=== PATIENT | female | born 1980 | race Caucasian/White ===

== ENCOUNTER 2020-11-18 20:52 | Emergency (ER) | payer OTHER, SELFPAY ==
[2020-11-18 21:00] VITALS: BP 139/91; PULSE 142; RESP 17; TEMP 36.6; O2SAT 100; BMI 29.0
[2020-11-18] MEDS: LIDO 1%/SOD BICARB 8.4% (10ML) 10 ML SYRINGE INJ (21:03)
--- NOTE | 2020-11-18 21:27 | ED.WOUNDLAC ---
HPI - Wound/Laceration General Chief Complaint: Wound/Laceration Stated Complaint: FALL LACERATION OF THE FACE Time Seen by Provider: 11/18/20 20:59 Source: patient Mode of arrival: Ambulatory Limitations: no limitations History of Present Illness HPI narrative: Patient is a 40-year-old female here for evaluation of a laceration to the left side of her face. She stated that she fell in the bathroom and did hit her face on the side of the tub. There was no loss of consciousness. She reports no other injury from the event. Related Data Previous Rx's Medication Instructions Recorded [Levothyroxine/Liothy] PO #90 cap 08/22/17 acyclovir 400 mg tablet 400 mg PO BID #14 tab 12/02/17 Allergies Allergy/AdvReac Type Severity Reaction Status Date / Time No Known Drug Allergies Allergy Verified 11/18/20 21:04 Review of Systems Constitutional Constitutional: Reports system reviewed and no additional complaints, except as documented ENT Ears, Nose, Mouth, and Throat: Denies vertigo and Denies dizziness Integumentary/Breasts Comments: Cut to left cheek Neurologic Neurologic: Denies vertigo and Denies dizziness Hematologic/Lymphatic On Anticoagulants: No Allergic/Immunologic Allergic/Immunologic: Reports system reviewed and no additional complaints, except as documented Patient History Medical History 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) Surgical History (Updated 10/07/17 @ 06:09 by Conversion Provider) Status post delivery Social History Smoking Status: Never smoker Smoking Status: Never smoker Substance Use Type: does not use Exam Initial Vital Signs Initial Vital Signs: Vital Signs Temperature 98 F 11/18/20 21:00 Pulse Rate 142 H 11/18/20 21:00 Respiratory Rate 17 11/18/20 21:00 Blood Pressure 139/91 H 11/18/20 21:00 Pulse Oximetry 100 11/18/20 21:00 Const General: cooperative Limitations: mental status not altered HENMT Head: normal to inspection and normocephalic Ears: TM's normal bilaterally Nose: external nose normal and nares normal Face and sinus: face symmetric, ecchymosis (Under left eye), laceration, no maxillary instability and no sinus tenderness Mouth: oral mucosae normal Teeth and gingiva: dentition normal Eyes General: appearance normal, both eyes and all related structures Pupils: PERRL Other: Bruising in her left eye Resp Effort & Inspection: normal respiratory effort Skin Other: Patient with a 4 cm laceration to her left cheek. Neuro General: patient alert and patient awake Speech: speech normal Gait: normal gait Extrem General: normal to inspection and capillary refill normal Psych Appearance: grossly normal and well kempt Procedures Laceration Repair Laceration 1: Site: face Side (If applicable): left Size (cm): 4 Description: irregular Depth: simple, single layer Local Anesthetic: lidocaine 1% and with bicarb Amount of anesthesia used (mL): 3 Pre-repair: wound explored and deep structures intact Skin layer closed with: other (Chromic) Size (cm): 5-0 Number of sutures: 7 Technique: simple, interrupted Course Orders Ordered: Discontinued Medications Bacitracin (Bacitracin Oint 0.9 Gm Pckt) 1 applic TOP NOW ONE Stop: 11/18/20 21:29 Last Admin: 11/18/20 21:30 Dose: 1 applic Documented by: TYSHAWN Lidocaine/Sodium Bicarbonate (Lido 1%/Sod Bicarb 8.4% (10ml) 10 Ml Syringe) 10 ml INJ NOW ONE Stop: 11/18/20 21:00 Last Admin: 11/18/20 21:03 Dose: 10 ml Documented by: TYSHAWN Vital Signs Vital signs: Vital Signs - 8 hr 11/18/20 21:00 Temperature 98 F Pulse Rate 142 H Respiratory Rate 17 Blood Pressure 139/91 H Pulse Oximetry 100 MDM - Wound/Laceration MDM Narrative Medical decision making narrative: Patient was informed that despite our intervention today that there is the potential of a scar. The wound was closed with stitches and the edges approximated very well. She did have bruising under her left eye however there were no step-offs or crepitus along the zygomatic arch. Feel that we can hold on further workup for now and also radiologic studies. Patient was given care instructions and return precautions. She expressed understanding and agreement. Discharge Plan Departure Patient Disposition: Home Clinical Impression: Laceration Instructions: DI for Laceration Repair Activity Restrictions/Additional Instructions: You can put topical antibiotic ointment over the area. The stitches are absorbable in should come out on their own. Covered with a bandage as needed. You can take Tylenol/ibuprofen for any discomfort. Return to the emergency department for any new or worsening symptoms Prescriptions: No Action [Levothyroxine/Liothy] PO Qty: 90 RF: 1 acyclovir 400 mg tablet 400 mg PO BID Qty: 14 RF: 1
[2020-11-18] MEDS: BACITRACIN OINT 0.9 GM PCKT 1 APPLIC TOP (21:30)
== END 2020-11-18 21:30 | disposition home or self-care (01) ==
PROVIDERS: Emergency Provider Emergency Medicine
DX: S01.81XA Laceration without foreign body of other part of head, initial encounter (principal); W18.09XA Striking against other object with subsequent fall, initial encounter
CPT/HCPCS: 12002; 99283